=== PATIENT | female | born 1995 | race Caucasian/White ===

== ENCOUNTER 2020-02-19 15:28 | Emergency (ER) | payer OTHER ==
--- NOTE | 2020-02-19 16:23 | ED Physician Documentation ---
History of Present Illness - Stated complaint Stated Complaint: FEVER/BODY PX - Chief complaint Chief Complaint: General - History obtained from History obtained from: Patient - Additonal information Additional information: 24-year-old female presents to the emergency department for evaluation of sore throat, body aches, fatigue, loss of taste and initially low-grade fever that began about 4 days ago. T-max was 100.5. She denies chest pain or dyspnea. No nausea vomiting diarrhea. No dysuria urgency or frequency. She is worried that she could have strep throat. She lives with her boyfriend who is in the . She has a 9 fold baby at home. Denies any pertinent past medical history. Takes no prescribed medications. Review of Systems Constitutional: reports: Fever, Chills, Myalgias, Fatigue Eyes: reports: Reviewed and negative Ears: reports: Reviewed and negative Nose: reports: Congestion Throat: reports: Sore throat, Other (Loss of taste but not loss of smell) Cardiac: reports: Reviewed and negative Respiratory: reports: Reviewed and negative GI: reports: Reviewed and negative : reports: Reviewed and negative Skin: reports: Reviewed and negative Musculoskeletal: reports: Reviewed and negative PD PAST MEDICAL HISTORY - Allergies Allergies/Adverse Reactions: Allergies Allergy/AdvReac Type Severity Reaction Status Date / Time No Known Drug Allergies Allergy Verified 02/19/20 15:36 PD ED PE NORMAL - General General: Alert and oriented X 3, No acute distress - HEENT HEENT: PERRL, Ears normal, Moist mucous membranes, Pharynx benign, Other (Mild posterior oropharynx erythema without exudate. Uvula is midline. No soft palate asymmetry or swelling. Normal phonation. Normal swallow. No tender anterior cervical lymphadenopathy) - Neck Neck: Supple, no meningeal sign, No adenopathy, Thyroid normal, No JVD - Cardiac Cardiac: RRR, No murmur - Respiratory Respiratory: No respiratory distress, Clear bilaterally - Abdomen Abdomen: Normal bowel sounds, Soft, Non tender Results - Vitals Vitals: Vital Signs - 24 hr 02/19/20 15:33 Temperature 36.5 C Heart Rate 82 Respiratory 15 Rate Blood Pressure 115/62 O2 Saturation 97 Oxygen O2 Source Room air - Labs Labs: Laboratory Tests 02/19/20 16:18 Group A Strep Rapid Negative PD MEDICAL DECISION MAKING - ED course Complexity details: reviewed results, re-evaluated patient, considered differential, d/w patient ED course: 24-year-old female presents the emergency department for chief complaint of sore throat, low-grade fevers body aches myalgias and loss of taste but not smell. Rapid strep is negative. Given symptoms for 4 days will defer influenza testing or treatment. COVID-19 screening is pending. Patient was advised that she must go home and remain in quarantine until these results are known. recommend tylenol or ibuprofen for analgesia. f/u with pcp Departure - Departure Disposition: Home, Self Care Clinical Impression: Sore throat (viral) Condition: Stable Record reviewed to determine appropriate education?: Yes Instructions: ED Pharyngitis Viral Comments: festus we have tested you today for COVID-19. You must remain in quarantine until the results are known. Your rapid strep test today is negative. Please return to the emergency department if you have difficulty breathing, cannot swallow or tolerate your oral secretions, feel faint or have a suddenly severe or different abdominal or head pain.
[2020-02-19 17:00] LABS: RAPID STREP SCREEN Negative (Negative)
[2020-02-19 17:19] VITALS: BP 119/80
== END 2020-02-19 17:19 | disposition home or self-care (01) ==
LOC: ED 15:28
DX: J02.8 Acute pharyngitis due to other specified organisms (principal); Z20.828 Contact with and (suspected) exposure to other viral communicable diseases
CPT/HCPCS: 87070; 87430; 99282; 99283